=== PATIENT | female | born 1965 ===

== ENCOUNTER 2017-01-05 13:32 | Emergency (ER) | payer MEDICAID ==
[2017-01-05 13:57] VITALS: O2SAT 98
--- NOTE | 2017-01-05 14:18 | ED PDOC ---
HPI: Abdomen Time Seen by Provider: 01/05/17 13:39 Chief Complaint (Nursing): Abdominal Pain Chief Complaint (Provider): Abdominal Pain History Per: Patient Additional Complaint(s): 51 yo female, PMH of HTN and Asthma, presents to ED with c/o left upper quadrant pain for past three days, pain started after friend picked her lifted her, pain to left rib cage states pain worsening last night, denies nausea/ vomiting, pain worse during cough. Past Medical History Reviewed: Nursing Documentation, Vital Signs Vital Signs: Last Vital Signs Temp 98.6 F 01/05/17 13:50 Pulse 66 01/05/17 18:53 Resp 18 01/05/17 18:53 BP 122/79 01/05/17 18:53 Pulse Ox 98 01/05/17 18:53 - Medical History PMH: Asthma, HTN Denies: Chronic Kidney Disease - Surgical History Surgical History: - Family History Family History: States: Unknown Family Hx Denies: [place], CAD - Living Arrangements Living Arrangements: With Family - Social History Current smoker - smoking cessation education provided: No Alcohol: None Drugs: Denies - Home Medications Home Medications: Ambulatory Orders Medication Instructions Recorded Albuterol HFA [Ventolin HFA 90 2 puff IH [id number] PRN #1 inhaler 04/10/16 mcg/actuation (8 g)] Methylprednisolone [Medrol Dose 4 mg PO DAILY #21 mg 04/10/16 Pack (21 tabs)] Dicyclomine [Bentyl] 10 mg PO QID PRN #10 cap 01/05/17 - Allergies Allergies/Adverse Reactions: Allergies Allergy/AdvReac Type Severity Reaction Status Date / Time shrimp Allergy RASH Verified 04/10/16 15:57 Review of Systems ROS Statement: Except As Marked, All Systems Reviewed And Found Negative Gastrointestinal: Positive for: Abdominal Pain Physical Exam - Reviewed Nursing Documentation Reviewed: Yes Vital Signs Reviewed: Yes - Physical Exam Appears: Positive for: Well, Non-toxic, No Acute Distress Head Exam: Positive for: ATRAUMATIC, NORMAL INSPECTION, NORMOCEPHALIC Skin: Positive for: Normal Color, Warm, DRY Eye Exam: Positive for: EOMI, Normal appearance, PERRL ENT: Positive for: Normal ENT Inspection Neck: Positive for: Normal, Painless ROM Cardiovascular/Chest: Positive for: Regular Rate, Rhythm Respiratory: Positive for: CNT, Normal Breath Sounds Gastrointestinal/Abdominal: Positive for: Normal Exam, Bowel Sounds, Soft. Negative for: Tenderness, Distended, Guarding Back: Positive for: Normal Inspection Extremity: Positive for: Normal ROM Neurologic/Psych: Positive for: Alert, Oriented - Laboratory Results Result Diagrams: 01/05/17 14:52 01/05/17 14:52 - ECG O2 Sat by Pulse Oximetry: 98 Medical Decision Making Medical Decision Making: IV access established and treatment initiated with Pepcid and Zofran CXR: NAd, as read by BRIANA Pt on re-eval reports feeling improved. Abdomen soft, non tender and non distended Pt tolerated PO food tray without difficulty. Notes feeling improved on re-eval. Labs resulted and reviewed with pt who demonstrated full understating Disposition - Clinical Impression Clinical Impression: Abdominal pain in female, Chest wall tenderness - Patient ED Disposition Is Patient to be Admitted: No - Disposition Disposition: Routine/Home Disposition Time: 19:10 Condition: STABLE Prescriptions: Dicyclomine [Bentyl] 10 mg PO QID PRN #10 cap PRN Reason: Pain, Mild (1-3) Instructions: Acute Abdominal Pain (ED) Forms: [employer] (Finnish) Print Language: URDU
[2017-01-05 14:56] LABS: BASO % 0.8 % (0.0-2.0); EOS # 0.2 K/uL (0.0-0.7); EOS % 3.7 % (0.0-4.0); HEMATOCRIT 41.8 % (34.0-47.0); LYMPH # 2.1 K/uL (1.0-4.3); LYMPH % 36.2 % (20.0-40.0); MEAN CELL VOLUME 81.3 fl (81.0-99.0); MEAN CORPUSCULAR HEMOGLOBIN 25.3 pg (27.0-31.0); MEAN CORPUSCULAR HGB CONC 31.1 g/dL (33.0-37.0); MEAN PLATELET VOLUME 7.6 fl (7.2-11.7); MONO # 0.5 K/uL (0.0-0.8); MONO % 8.7 % (0.0-10.0); NEUT # 2.9 K/uL (1.8-7.0); NEUT % 50.6 % (50.0-75.0); NRBC % 0.1 % (0.0-0.0); RED CELL DISTRIBUTION WIDTH 15.6 % (11.5-14.5); WHITE BLOOD COUNT 5.7 K/uL (4.8-10.8)
[2017-01-05 14:59] LABS: RBC URINE 1 /hpf (0-3); URINE BILIRUBIN NEGATIVE (NEGATIVE); URINE BLOOD SMALL (NEGATIVE); URINE COLOR YELLOW (YELLOW); URINE GLUCOSE (UA) NEG (Normal); URINE KETONE NEGATIVE (NEGATIVE); URINE LEUKOCYTE ESTERASE NEG Leu/uL (Negative); URINE PROTEIN NEGATIVE (NEGATIVE); URINE UROBILINOGEN 0.2-1.0 mg/dL (0.2-1.0); WBC URINE 1 /hpf (0-5)
--- NOTE | 2017-01-05 15:03 | RAD ---
PROCEDURE: CHEST RADIOGRAPH, 1 VIEW HISTORY: med screening COMPARISON: Chest radiograph dated 04/10/2016 FINDINGS: LUNGS: Clear. PLEURA: No pneumothorax or pleural fluid seen. CARDIOVASCULAR: Normal. OSSEOUS STRUCTURES: No significant abnormalities. VISUALIZED UPPER ABDOMEN: Normal. OTHER FINDINGS: None. IMPRESSION: No active disease.
[2017-01-05 15:07] LABS: ALB/GLOB RATIO 1.2 (1.0-2.1); ALKALINE PHOSPHATASE 70 U/L (38-126); ALT/SGPT 33 U/L (9-52); AMYLASE 77 U/L (30-110); AST/SGOT 24 U/L (14-36); BILIRUBIN,TOTAL 0.4 mg/dl (0.2-1.3); BLOOD UREA NITROGEN 14 mg/dl (7-17); CALCIUM 9.5 mg/dL (8.4-10.2); CARBON DIOXIDE 32 mmol/L (22-30); CHLORIDE 100 mmol/L (98-107); GFR AFRICAN-AMERICAN > 60; GLUCOSE,RANDOM 85 mg/dL (65-105); LIPASE 78 U/L (23-300); SODIUM 141 mmol/l (132-148); TOTAL PROTEIN 7.9 G/DL (6.3-8.2)
[2017-01-05 19:17] VITALS: BP 126/78; PULSE 78; RESP 17; TEMP 97.7
--- NOTE | 2017-01-06 10:15 | CARD ---
APPROVED REPORT EKG Measurement Heart [id number] <Conclusion> Normal sinus rhythm Normal ECG
== END 2017-01-05 19:18 | disposition home or self-care (01) ==
LOC: H.ER 13:32
DX: R10.12 Left upper quadrant pain (principal); R07.89 Other chest pain; I10 Essential (primary) hypertension; J45.909 Unspecified asthma, uncomplicated
CPT/HCPCS: 71010; 80053; 81003; 81025; 82150; 83690; 84484; 85025; 93005; 96374; 96375; 99283; J2405